=== PATIENT | female | born 1985 | race Caucasian/White ===

== ENCOUNTER → 2016-11-19 | Outpatient (CLI) | payer MEDICAID ==
[~2016-11-19] MED LIST: ASCORBIC ACID500 MG PO; EFFEXOR37.5 MG PO; IRON325 M1 PO; MOTRIN-DPS800 MG PO; PRENATAL VIT1 TAB PO; VALTREX DPS500 MG PO
== END | disposition home or self-care (01) ==
LOC: RAD.S 13:43
DX: Z36 Encounter for antenatal screening of mother (principal); Z3A.35 35 weeks gestation of pregnancy

== ENCOUNTER 2016-12-12 04:55 | Inpatient (IN) | payer MEDICAID ==
[~2016-12-12] VITALS: Ht 165.1 cm; Wt 77.1 kg
--- NOTE | ~2016-12-12 | FD ---
ADMIT: 12/12/2016 RM/LOC: 221 [facility] MR#: [id number] [address] [address] JASPER CALIXTO [address] [place] [id number] Final Diagnosis SEX: F AGE: 31 : 1985 ADMISSION DATE: 12/12/2016 DISCHARGE DATE: 12/13/2016 FINAL DIAGNOSES: 1. Intrauterine at 39 weeks and 0/7 days. 2. Smoking during . 3. Right labial/periurethral laceration. 4. Status post spontaneous vaginal delivery, live-born infant male born at 1401 hours with a weight of 8 pounds 10.5 ounces and scores of 7 and 8 at 1 and 5 minutes respectively. Pedro Chandler MD/ andrewl JOB #: [id number] CC: Pedro Chandler MD, Attending Physician Jake Reyes MD, Family Physician
--- NOTE | ~2016-12-12 | HP ---
ADMIT: 12/12/2016 RM/LOC: 221 [facility] MR#: [id number] [address] ADELINE CALIXTO [address] [place] [id number] History and Physical SEX: F AGE: 31 : 1985 DATE OF SERVICE: CHIEF COMPLAINT: Contractions. HISTORY OF PRESENT ILLNESS: Adeline is a very pleasant 31-year-old, 3, para 2, with an intrauterine at 39 weeks and 0/7 days, confirmed by first-trimester ultrasound, who presents to the Labor and Delivery this morning with the above complaints. Her has been essentially uncomplicated other than smoking during and some [id number] depression during . Otherwise, she has followed up for all of her appointments. Normal care visits. The patient states that contractions started about 04:00 a.m., this morning, became more intense and more frequent, therefore she presented herself to Labor and Delivery. She says that the contractions are moderate. Membranes intact. She has been admitted and has progressed from 3 to 4 cm over the last few hours. PAST MEDICAL HISTORY: Depression. PAST OBSTETRICAL HISTORY: In 1999 and 2010, vaginal deliveries of female and male. PAST SURGICAL HISTORY: 1. In 1997, knee surgery. 2. In 1997 and 1999, sinus surgery. MEDICATIONS: 1. vitamin. 2. Venlafaxine/Effexor. 3. Valtrex. 4. Iron. 5. Vitamin C. ALLERGIES: NO KNOWN DRUG ALLERGIES. SOCIAL HISTORY: She had smoked about a half pack a day, much less during . The father of the baby is involved. No alcohol or other drug use. FAMILY HISTORY: Positive for depression, asthma, history of DVT, hypertension, and epilepsy. REVIEW OF SYSTEMS: Summary is obtained, per HPI, otherwise negative. PHYSICAL EXAMINATION: VITAL SIGNS: Blood pressure 113/86, pulse is 104, respirations 18, temperature 97.0. GENERAL: : Alert and oriented x3. Does not appear in acute distress. HEENT: Pupils equal, round, and reactive. Extraocular muscles intact. Throat clear. Trachea midline. HEART: Regular rate and rhythm. No murmurs. LUNGS: Clear to auscultation bilaterally. ADMIT: 12/12/2016 RM/LOC: 221 [facility] MR#: [id number] [id number] [address] ADELINE CALIXTO [address] [place] [address] History and Physical SEX: F AGE: 31 : 1985 ABDOMEN: Gravid. Vertex by Robert maneuvers. Tocometer shows contractions every 1 to 3 minutes. heart tones category I. Cervical check showed 4.5 cm dilated, 70% effaced, -1 station with a bulging bag somewhat ballotable head, so no rupture of membranes at this time. EXTREMITIES: Without any significant edema. SKIN: Without any significant rashes. LABORATORY: Blood type A positive, antibody negative, serology nonreactive, rubella immune, GBS negative, HIV negative, GC/Chlamydia negative, hepatitis B surface antigen negative. This morning's labs; urine protein, glucose negative. Hemoglobin is pending. ASSESSMENT AND PLAN: A 31-year-old, 3, para 2, with. 1. Intrauterine at 39 weeks and 0/7 days. 2. Active labor. 3. Group B streptococcus negative. 4. Nicotine use during . 5. Depression and anxiety. 6. Anemia of on iron replacement. PLAN: We will continue with expectant management for now. Continue to monitor closely and if any signs of labor dystocia, we will start with labor augmentation with low-dose Pitocin. We will wait till head more engage prior to artificial rupture of membranes. Continue with other routine maternal monitoring. Pedro Chandler MD/ weston JOB #: [id number] CC: Pedro Chandler, Attending Physician Jake Reyes, Family Physician
[2016-12-14] MEDS ORDERED: ASCORBIC ACID500 MG PO (10:21)
[2016-12-14] MEDS ORDERED: IRON325 M1 PO (10:21)
[2016-12-14] MEDS ORDERED: VALTREX DPS500 MG PO (10:21)
[2016-12-14] MEDS ORDERED: PRENATAL VIT1 TAB PO (10:21)
[2016-12-14] MEDS ORDERED: MOTRIN-DPS800 MG PO (10:22)
[2016-12-14] MEDS ORDERED: EFFEXOR37.5 MG PO (10:22)
--- NOTE | 2016-12-18 07:41 | OR ---
ADMIT: 12/12/2016 RM/LOC: 221 [facility] MR#: [id number] [address] [address] JASPER CALIXTO [address] [place] [address] Operative/Delivery Room Report SEX: F AGE: 31 : 1985 SURGERY DATE: 12/12/2016 SURGEON: Pedro Chandler MD PREOPERATIVE DIAGNOSES: 1. Term intrauterine at 39 weeks 0/7 days. 2. Active labor. 3. Smoking during . 4. Group B streptococcus negative. POSTOPERATIVE DIAGNOSES: 1. Status post spontaneous vaginal delivery. 2. Repair of right labial/periurethral laceration. 3. Term intrauterine at 39 weeks 0/7 days. 4. Active labor. 5. Smoking during . 6. Group B streptococcus negative. PROCEDURE: 1. Spontaneous vaginal delivery. 2. Repair of right periurethral and labial tear. FINDINGS: 1. Live-born infant male born at 1401 hours with a weight of 8 pounds 10.5 ounces (3940 g), and scores of 7 and 8 at 1 and 5 minutes respectively. 2. Intact placenta with three-vessel cord. ANESTHESIA: 1% local lidocaine without epinephrine. ESTIMATED BLOOD LOSS: 350 mL. FLUIDS: Crystalloid. COMPLICATIONS: None immediate. INDICATIONS FOR PROCEDURE: Please refer to dictated H and P. Briefly, a very pleasant 31-year-old female, presented in active labor, term intrauterine . uncomplicated other then nicotine use during and anemia of . Continuous maternal monitoring was done throughout the labor process and was reassuring. Artificial rupture of membranes was performed at approximately 1200 hours. The patient progressed to being complete and started pushing bringing the infant's vertex to the perineum. DESCRIPTION OF PROCEDURE: The patient was in the dorsal lithotomy position draped in the usual fashion. Head delivered in OA position. After restitution of the head, no nuchal cords were noted. Left anterior shoulder, followed by the posterior shoulder, remainder was down without ADMIT: 12/12/2016 RM/LOC: 221 [facility] MR#: [id number] [address] [address] JASPER CALIXTO [address] [place] [address] Operative/Delivery Room Report SEX: F AGE: 31 : 1985 difficulty. Infant was noted to be vigorous and crying. Mouth and nares were bulb-suctioned. held below maternal pelvis for approximately 30 to 45 seconds for delayed clamping. We then transferred to maternal abdomen, where nursing personnel were in attendance. Cord was clamped x2 and cut by the father. Cord blood obtained. Placenta delivered intact in less than 5 minutes. Twenty units of Pitocin was started in IV bag to help firm the uterus. Attention was then turned to the vaginal vault and cervix, which were noted to be free of laceration. Likewise, perineum was noted to be free of laceration. On examination of her right upper labial wall and urethral area, there was noted to be a significant laceration and tear up above and even in the marge-clitoral area. Catheter was placed. This was repaired with 3-0 Vicryl subcutaneous stitch. Good hemostasis noted as well as cosmesis. Sponge and needle counts were correct. There were no other major events or complications during delivery. Mother and infant were in stable condition upon my departure from the room. Pedro Chandler MD/ weston JOB #: [id number] CC: Pedro Chandler, Attending Physician Jake Reyes, Family Physician
== END 2016-12-13 15:05 | disposition home or self-care (01) | DRG 775 ==
LOC: BC 04:55 → 2LDRP 04:55 → BC 12-19 08:00
PROVIDERS: ADMIT Family Medicine
PROC: 10907ZC Drainage of Amniotic Fluid, Therapeutic from Products of Conception, Via Natural or Artificial Opening (ICD-10-PCS; principal; 2016-12-12)
PROC: 10E0XZZ Delivery of Products of Conception, External Approach (ICD-10-PCS; principal; 2016-12-12)
PROC: 0UQJXZZ Repair Clitoris, External Approach (ICD-10-PCS; principal; 2016-12-12)
DX: O99.02 Anemia complicating childbirth (principal); D64.9 Anemia, unspecified; O99.344 Other mental disorders complicating childbirth; F32.9 Major depressive disorder, single episode, unspecified; O99.334 Smoking (tobacco) complicating childbirth; O71.89 Other specified obstetric trauma; F17.210 Nicotine dependence, cigarettes, uncomplicated; Z3A.39 39 weeks gestation of pregnancy; Z37.0 Single live birth